=== PATIENT | female | born 1940 | race Caucasian/White ===

== ENCOUNTER 2017-01-08 08:50 | Day surgery (SDC) | payer MEDICARE, OTHER ==
[~2017-01-08] VITALS: Ht 162.6 cm; Wt 82.2 kg
[~2017-01-08 08:50] MED LIST: APRESOLINE50 MG PO; ASPIRIN LOW STR81 MG PO; COREG12.5 M1 PO; ELAVIL25 MG PO; LANTUS100 U/ML SC; NORVASC2.5 M1 PO; OMEGA 3 FISH1 CAP.EC PO; PROTONIX40 M2 PO; SYNTHROID100 MC1 PO; TRAMADOL HCL50 MG PO; TRIGLIDE160 M1 PO; VITAMIN D32000 UNI1 PO
[2017-01-08] MEDS ORDERED: TYLENOL EXTRA500 M1 PO (09:50)
[2017-01-08] MEDS ORDERED: AMITRIPTYLINE H25 M1 PO (09:50)
[2017-01-08] MEDS ORDERED: MIRALAX17 G2 PO (09:51)
[2017-01-08] MEDS ORDERED: ASPIRIN EC81 MG PO (09:51)
[2017-01-08] MEDS ORDERED: LAXATIVE25 MG PO (09:52)
[2017-01-08] MEDS ORDERED: BENADRYL25 M3 PO (09:52)
[2017-01-08] MEDS ORDERED: NITROSTAT0.4 M1 SL (09:52)
[2017-01-08] MEDS ORDERED: OXYCODONE HCL5 M1 PO (09:53)
[2017-01-08] MEDS ORDERED: LASIX40 M1 PO (09:53)
[2017-01-08] MEDS ORDERED: PLAVIX75 M1 PO (09:53)
[2017-01-08] MEDS ORDERED: CATAPRES0.3 M1 PO (09:53)
[2017-01-08] MEDS ORDERED: NOVOLIN 70100 UNITS/ SC ×2 (09:54→09:55)
[2017-01-08] MEDS ORDERED: RENAGEL800 M1 PO (09:54)
[2017-01-08] MEDS ORDERED: TUMS200 MG PO (09:55)
[2017-01-08 10:33] LABS: BASO % 0.8 % (0-2); BASO ABSOLUTE COUNT 0.1 tho/cmm (0.0-0.2); EOS % 6.4 % (0-7); EOSINOPHIL ABSOLUTE COUNT 0.4 tho/cmm (0.0-0.7); HCT-HEMATOCRIT 33.2 % (34.0-49.0); HGB-HEMOGLOBIN 10.5 gm/dl (12.0-15.5); IMMATURE GRANULOCYTES ABSOLUTE 0.01 tho/cmm (0-0.03); IMMATURE GRANULOCYTES PERCENT 0.2 % (0-0.3); LYMPH % 37.5 % (20-45); LYMPH ABSOLUTE COUNT 2.4 tho/cmm (0.8-4.5); MCH (MEAN CORPUSCULAR HGB) 32.6 pg (28.0-32.0); MCHC MEAN CORPUSCULAR HGB CONC 31.6 % (32.0-36.0); MCV (MEAN CELL VOLUME) 103.1 fl (82.0-96.0); MONO % 7.3 % (0-12); MONOCYTE ABSOLUTE COUNT 0.5 tho/cmm (0.0-1.2); NEUTROPHILS % 47.8 % (40-80); PLATELET COUNT 134 tho/cmm (150-450); RED BLOOD COUNT 3.22 mil/cmm (4.00-5.20); WHITE BLOOD COUNT 6.3 tho/cmm (4.0-10.0)
[2017-01-08 10:48] LABS: ANION GAP 14 mmol/L (0-20); BLOOD UREA NITROGEN 32 mg/dl (6-24); CALCIUM 8.3 mg/dl (8.5-10.5); CARBON DIOXIDE-VENOUS 30 mmol/L (22-32); CHLORIDE 100 mmol/l (96-110); CREATININE 3.95 mg/dl (0.50-1.10); GLUCOSE 179 mg/dL (70-110); POTASSIUM 3.6 mmol/L (3.7-5.1); SODIUM 140 mmol/L (135-145); eGFR VALUE FOR BLACK 12 mL/Min
== END 2017-01-08 15:30 ==
LOC: SHSB 08:50 → RADSP 08:50 → SHSB 08:51 → RADSP 11:00 → SHSB 14:00 → RADSP 15:30
PROVIDERS: Anesthesiology
PROC: 03783ZZ Dilation of Left Brachial Artery, Percutaneous Approach (ICD-10-PCS; principal; 2017-01-08)
DX: T82.858A Stenosis of other vascular prosthetic devices, implants and grafts, initial encounter (principal); T82.868A Thrombosis due to vascular prosthetic devices, implants and grafts, initial encounter; T82.856A Stenosis of peripheral vascular stent, initial encounter; I12.0 Hypertensive chronic kidney disease with stage 5 chronic kidney disease or end stage renal disease; E11.22 Type 2 diabetes mellitus with diabetic chronic kidney disease; N18.6 End stage renal disease; F32.9 Major depressive disorder, single episode, unspecified; Z88.2 Allergy status to sulfonamides; Z88.8 Allergy status to other drugs, medicaments and biological substances; Z79.82 Long term (current) use of aspirin; Z79.02 Long term (current) use of antithrombotics/antiplatelets; Z79.899 Other long term (current) drug therapy; Z86.73 Personal history of transient ischemic attack (TIA), and cerebral infarction without residual deficits; Z87.891 Personal history of nicotine dependence; Z90.710 Acquired absence of both cervix and uterus; Y83.8 Other surgical procedures as the cause of abnormal reaction of the patient, or of later complication, without mention of misadventure at the time of the procedure; Z98.890 Other specified postprocedural states
CPT/HCPCS: C1725; C1757; C1769; C1887; J1650; J7030; Q9967